=== PATIENT | female | born 1945 | race Caucasian/White ===

== ENCOUNTER 2022-09-15 06:01 | Outpatient (CLI) | payer MEDICAID, SELFPAY ==
--- NOTE | 2022-09-15 | US_ITS ---
WS: [id number] Complete ABDOMINAL ULTRASOUND HISTORY: ABD PAIN AND BLOATING COMPARISON: CT 09/13/2008 Liver: 12.3 cm in length. Liver is small. Coarse echotexture and heterogeneity throughout the liver. Numerous hypoechoic nodules scattered throughout the liver. The largest in the central RIGHT lobe rajeev sures 1.5 cm. No increased vascularity. No bile duct dilatation. Portal Vein: Normal hepatopetal flow with monophasic waveform. Gallbladder: Prior cholecystectomy. Pancreas: Poorly visualized. Portions of the body visualized are normal. CBD: 0.9 cm. Right kidney: 8.9 cm x 4.6 cm x 4.3 cm. No mass, cortical thickening or hydronephrosis. Left kidney: 9.4 cm x 4.7 cm x 4.3 cm. No mass, cortical thickening or hydronephrosis. Spleen: Normal size and echogenicity. Abdominal aorta and IVC are within normal limits. No ascites. US/US abdomen complete* [id number] IMPRESSION: 1. Abnormal liver. There are several hypoechoic masses scattered throughout th e liver with the largest measuring 1.5 cm. Most consistent with metastatic dise ase. Additional differential would include hepatic abscesses. Recommend follow- up CT abdomen and pelvis with IV and oral contrast. 2. Prior cholecystectomy. 3. No renal obstruction.
== END 2022-09-15 06:02 | disposition home or self-care (01) ==
LOC: RAD 06:02
PROVIDERS: Visit Provider Nurse Practitioner Family
DX: R10.9 Unspecified abdominal pain (principal); R14.0 Abdominal distension (gaseous); Z90.49 Acquired absence of other specified parts of digestive tract; R16.0 Hepatomegaly, not elsewhere classified
CPT/HCPCS: 76700

== ENCOUNTER 2022-10-08 11:53 | Emergency (ER) | payer MEDICAID, SELFPAY ==
[2022-10-08 12:06] VITALS: PULSE 70; O2SAT 97; BMI 26.7
--- NOTE | 2022-10-08 12:25 | CTR_ITS ---
PROCEDURE INFORMATION: Exam: CT Chest With Contrast; Diagnostic Exam date and time: 10/08/2022 2:15 PM Age: 77 years old Clinical indication: Abdominal pain; Other: Ruq; Prior surgery; Surgery date: 6+ months; Surgery type: Merissa; Additional info: Abnl US, ? liver mets on US, abd pain TECHNIQUE: Imaging protocol: Diagnostic computed tomography of the chest with contrast. Radiation optimization: All CT scans at this facility use at least one of these dose optimization techniques: automated exposure control; mA and/or kV adjustment per patient size (includes targeted exams where dose is matched to clinical indication); or iterative reconstruction. Contrast material: OMNI 350; Contrast volume: 100 ml; Contrast route: INTRAVENOUS (IV); Other contrast: Oral, Omni 350 w/water, 600ml; REPORTING DATA: Count of CT and Cardiac NM exams in prior 12 months: This patient has received 0 known CTs and 0 known cardiac nuclear medicine studies in the 12 months prior to the current study. COMPARISON: US abdomen complete* [id number] 09/15/2022 6:18 AM RADIATION DOSE METRICS: Total DLP (mGy-cm): 859.09 FINDINGS: Lungs: Mild hypoventilatory changes posteriorly at the lung bases and mild subsegmental atelectasis left lingula, otherwise lung wells are aerated and clear. No nodules or masses detected. Pleural spaces: Unremarkable. No pneumothorax. No pleural effusion. Heart: Heart is mildly enlarged. No significant coronary artery calcifications or pericardial effusion. Lymph nodes: Unremarkable. No enlarged lymph nodes. Vasculature: Unremarkable. No aortic aneurysm. Stomach and bowel: Small amount of contrast in the mid esophagus suggestive of reflux. Bones/joints: Unremarkable. No acute fracture. Soft tissues: Unremarkable. PROCEDURE INFORMATION: Exam: CT Abdomen And Pelvis With Contrast Exam date and time: 10/08/2022 2:15 PM Age: 77 years old Clinical indication: Abdominal pain; Other: Ruq; Prior surgery; Surgery date: 6+ months; Surgery type: Merissa; Additional info: Abnl US, ? liver mets on US, abd pain TECHNIQUE: Imaging protocol: Computed tomography of the abdomen and pelvis with contrast. Radiation optimization: All CT scans at this facility use at least one of these dose optimization techniques: automated exposure control; mA and/or kV adjustment per patient size (includes targeted exams where dose is matched to clinical indication); or iterative reconstruction. Contrast material: OMNI 350; Contrast volume: 100 ml; Contrast route: INTRAVENOUS (IV); Other contrast: Oral, Omni 350 w/water, 600ml; REPORTING DATA: Count of CT and Cardiac NM exams in prior 12 months: This patient has received 0 known CTs and 0 known cardiac nuclear medicine studies in the 12 months prior to the current study. COMPARISON: US abdomen complete* [id number] 09/15/2022 6:18 AM RADIATION DOSE METRICS: Total DLP (mGy-cm): 859.09 FINDINGS: Lungs: Lung bases are clear. Liver: There are numerable hypodense masses throughout the liver measuring up to 3 cm consistent with widespread liver metastasis. Gallbladder and bile ducts: Gallbladder has been removed. There is mild associated dilatation of the common bile duct. Pancreas: Unremarkable. Main pancreatic duct is not significantly dilated. Spleen: Normal. No splenomegaly. Adrenal glands: Normal. No mass. Kidneys and ureters: Tiny cortical cyst left kidney likely benign otherwise kidneys are unremarkable. Stomach and bowel: Few scattered diverticula sigmoid colon otherwise bowel loops are unremarkable. Appendix: No evidence of appendicitis. Intraperitoneal space: Unremarkable. No free air. No significant fluid collection. Vasculature: Unremarkable. No abdominal aortic aneurysm. Lymph nodes: Unremarkable. No enlarged lymph nodes. Urinary bladder: Unremarkable as visualized. Reproductive: 3 cm calcified uterine fibroid otherwise uterus is unremarkable. 2.5 cm right ovarian cyst, nonspecific. Bones/joints: Mild scoliosis lumbar spine. No suspicious bone lesions detected. Soft tissues: Small fat containing umbilical hernia. CT/CT chest abdpel w/*[id number] IMPRESSION: 1. No evidence of intrathoracic malignancy or metastatic disease within the chest. 2. Mild subsegmental atelectasis left lingula. IMPRESSION: 1. Numerous liver metastasis. 2. Prior cholecystectomy with mild associated dilatation of the common bile duct. 3. Large calcified uterine fibroid 4. 2.5 cm right ovarian cyst, nonspecific. In view of patient's age and liver findings would recommend follow-up nonemergent pelvic ultrasound for further characterization.
--- NOTE | 2022-10-08 12:29 | ED_ITS ---
HPI - Abdominal Pain General: Chief Complaint: Abdominal Pain Stated Complaint: abd pain Time Seen by Provider: 10/08/22 12:05 Source: patient, family and old records reviewed Mode of arrival: ambulatory Limitations: language barrier (daughter prefers to be adult education manager, patient from [facility]) History of Present Illness: 77 yo f with 1 months constant, worsening abd pain with recent abnormal RUQ US that was ordered by PCP. MD elicited complaint: abdominal pain Pertinent past history: diverticulitis, gastritis, gastrointestinal bleeding, kidney stones, myocardial infarction and other (cholecystectomy) Onset (ago): month(s) (1) Pain Consistency: constant Location: Diffuse and RUQ (worst pain RUQ) Severity: moderate Quality: dull Exacerbating factors: eating and movement Relieving factors: nothing Context: other (US ordered by PCP--found possible cancer vs abscesses in liver, hasn't had f/u CT) Associated Symptoms: Reports anorexia, GI cramping, heartburn, nausea and poor appetite; Denies change in bowel habits, change in stool character, coffee ground emesis, constipation, diarrhea, dysuria, fever(s), hematuria, hematemesis, fecal incontinence, loose stools and syncope Review of Systems General: Reports: 10 or more systems reviewed and unremarkable except in HPI and below Const: Reports: fatigue and other ( hot and cold back and forth ); Denies: fever(s) or change in weight Eyes: Denies: change in vision ENMT: Denies: throat pain Card: Denies: syncope Resp: Denies: dyspnea or productive cough GI: Reports: abdominal pain, nausea, heartburn, early satiety and GI cramping; Denies: hematemesis, coffee ground emesis, diarrhea, constipation, fecal incontinence, change in bowel habits or change in stool character : Denies: dysuria or hematuria Musc: Denies: neck pain, back pain, extremity pain or extremity swelling Skin/Breast: Denies: rash or erythema Neuro: Denies: headache(s), numbness in extremities, weakness in extremities, lack of coordination or difficulty walking Physical Exam Const: COMMON NORMALS: no limitations, alert and well nourished EXAM LIMITATIONS: no altered mental status HENMT: COMMON NORMALS: normocephalic, atraumatic and external ears normal HEAD & SCALP: normocephalic and atraumatic EXTERNAL EAR: Yes external ears normal MOUTH: no muffled voice Eye: COMMON NORMALS: EOMs intact bilaterally, conjunctivae normal and no scleral icterus CONJUNCTIVA: Yes conjunctivae normal Neck/C-Spine: COMMON NORMALS: no JVD GENERAL: Yes normal visual inspection and Yes trachea midline Chest: BREAST/AXILLA PALPATION: Yes other (deferred) Resp: COMMON NORMALS: normal respiratory effort, No use of accessory muscles and clear to auscultation bilaterally AUSCULTATION: clear to auscultation bilaterally Cardio: COMMON NORMALS: no JVD, regular rate and regular rhythm RATE: regular rate RHYTHM: regular rhythm GI: COMMON NORMALS: Soft to palpation INSPECTION: No Anasarca and No scaphoid PALPATION: Yes Soft to palpation, No Firmness to palpation present (GI) and Yes Tenderness to palpation present (GI) Details: LLQ, RLQ and RUQ Extremity: COMMON NORMALS: normal to inspection Neuro: COMMON NORMALS: moves all extremities, no focal motor deficits and no sensory deficits noted SENSORIUM/ORIENTATION: Yes alert SPEECH: speech normal Psych: COMMON NORMALS: mental status grossly normal, Normal thought process present, cooperative, normal affect and speech normal SPEECH: Yes normal speech THOUGHT PROCESS: Normal thought process present Skin: COMMON NORMALS: turgor normal and no jaundice GENERAL SKIN EXAM: turgor normal Course Vital Signs: Vital signs: Vital Signs Pulse Rate 67 10/08/22 15:00 Blood Pressure 146/83 10/08/22 15:00 Pulse Oximetry 90 10/08/22 15:00 Oxygen Delivery Me thod 10/08/22 15:00 MDM - Abdominal Pain Medical Decision Making 77-year-old female with 1 month of indolent abdominal pain. She had an ultrasound that was ordered by her primary care physician. I have reviewed this. There is concern that there may be hepatic metastases. Alternatively, there could be hepatic abscesses although this was thought to be less likely. I am concerned for a neoplastic process. A chest abdomen and pelvis with contrast has been ordered. We will also use oral contrast. The patient will be given morphine and Zofran for comfort and IV fluids. CT Chest/Abd/Pelv w/ IV and Oral contrast: IMPRESSION: 1. ? No evidence of intrathoracic malignancy or metastatic disease within the chest. 2. ? Mild subsegmental atelectasis left lingula. ? ? IMPRESSION: 1. ? Numerous liver metastasis. 2. ? Prior cholecystectomy with mild associated dilatation of the common bile duct. 3. ? Large calcified uterine fibroid 4. ? 2.5 cm right ovarian cyst, nonspecific. In view of patient's age and liver findings would recommend follow-up nonemergent pelvic ultrasound for further characterization. UPDATE: In light of the CT scan findings above, the patient is thought to have liver metastasis. There is a right ovarian cyst, which is concerning at this age. She will need further workup. I called Dr Fleming and am awaiting a call back. She will get a referral to Dr Fleming and her PCP---since she has liver lesions, ths would be the best place to get biopsy. She has NEVER had colonoscopy. At this time, there is no indication for admission. I will d/c with pain medication and nausea medication. Results discussed with patient/daughter. Lab Data 10/08/22 12:35 10/08/22 12:35 Labs/Radiology: Radiology Impressions Chest/Abdomen/Pelvis CT 10/08/22 12:25 IMPRESSION: 1. No evidence of intrathoracic malignancy or metastatic disease within the chest. 2. Mild subsegmental atelectasis left lingula. IMPRESSION: 1. Numerous liver metastasis. 2. Prior cholecystectomy with mild associated dilatation of the common bile duct. 3. Large calcified uterine fibroid 4. 2.5 cm right ovarian cyst, nonspecific. In view of patient's age and liver findings would recommend follow-up nonemergent pelvic ultrasound for further characterization. Laboratory Results WBC 7.5 10^3/uL (4.0-10.0) 10/08/22 12:35 RBC 4.50 10^6/uL (4.1-5.3) 10/08/22 12:35 Hgb 12.3 g/dL (11.5-15.3) 10/08/22 12:35 Hct 39.2 % (37.0-47.0) 10/08/22 12:35 MCV 87.1 fl (81-99) 10/08/22 12:35 MCH 27.3 pg (28.0-34.0) L 10/08/22 12:35 MCHC 31.4 g/dL (30.0-36.0) 10/08/22 12:35 RDW 13.5 % (12.1-15.1) 10/08/22 12:35 Plt Count 298 10^3/cmm (130-400) 10/08/22 12:35 MPV 9.6 fL (7.4-10.4) 10/08/22 12:35 Neut % (Auto) 68.5 % 10/08/22 12:35 Lymph % (Auto) 19.1 % 10/08/22 12:35 [place] % (Auto) 7.4 % 10/08/22 12:35 Eos % (Auto) 3.9 % 10/08/22 12:35 Baso % (Auto) 0.8 % 10/08/22 12:35 Neut # (Auto) 5.15 10^3/uL (1.8-7.7) 10/08/22 12:35 Lymph # (Auto) 1.4 10^3/uL (0.8-4.8) 10/08/22 12:35 [place] # (Auto) 0.6 10^3/uL (0.2-0.9) 10/08/22 12:35 Eos # (Auto) 0.3 10^3/uL (0.0-0.8) 10/08/22 12:35 Baso # (Auto) 0.1 10^3/uL (0.0-0.1) 10/08/22 12:35 Nucleated RBC % (auto) 0 % 10/08/22 12:35 Nucleated RBCs # 0.0 /100WBC 10/08/22 12:35 Sodium 138 mmol/L (136-145) 10/08/22 12:35 Potassium 3.7 mmol/L (3.5-5.1) 10/08/22 12:35 Chloride 102 mmol/L (98-107) 10/08/22 12:35 Carbon Dioxide 23 mmol/L (22-29) 10/08/22 12:35 Anion Gap 16.7 (5-19) 10/08/22 12:35 BUN 16 mg/dL (8-23) 10/08/22 12:35 Creatinine 0.7 mg/dL (0.5-0.9) 10/08/22 12:35 GFR Calculation Not Reportable 10/08/22 12:35 Glucose 102 mg/dL (65-115) 10/08/22 12:35 Calculated Osmolality 287 mOsm/kg (285-295) 10/08/22 12:35 Calcium 9.9 mg/dL (8.5-10.5) 10/08/22 12:35 Magnesium 2.2 mg/dL (1.7-2.3) 10/08/22 12:35 Total Bilirubin 0.8 mg/dL (0.15-1.2) 10/08/22 12:35 AST 128 U/L (0-32) H 10/08/22 12:35 ALT 79 U/L (0-33) H 10/08/22 12:35 Alkaline Phosphatase 342 U/L (35-105) H 10/08/22 12:35 Total Protein 7.7 g/dL (6.6-8.7) 10/08/22 12:35 Albumin 4.1 g/dL (3.5-5.2) 10/08/22 12:35 Globulin 3.6 g/dL (1.3-4.6) 10/08/22 12:35 Lipase 30 U/L (13-60) 10/08/22 12:35 Discharge Plan Discharge Patient Disposition: Home Clinical Impression: Metastatic cancer to liver, Ovarian cyst, right Condition: Stable Prescriptions: New hydrocodone-acetaminophen 5-325 mg tablet 1 tab PO Q6H PRN (Reason: pain) Qty: 20 0RF Senna with Docusate Sodium 8.6-50 mg tablet 1 tab-cap PO BID PRN (Reason: constipation) Qty: 30 0RF ondansetron 4 mg tablet,disintegrating 4 mg PO Q6H PRN (Reason: nausea and vomiting) Qty: 20 2RF Discharge Orders: Discharge ED (Routine); Ordered 10/08/22 Ordered By: Ramiro العلي Referrals: Lauro Fleming MD [Hospitalist] - 1-3 days (Discovered liver lesions, appears metastatic. Needs tissue diagnosis. Needs help setting up/managing.) Discharge Diet: Advance as tolerated Discharge Activity: Resume usual activity Patient Instructions: Cancer Pain, Needle Biopsy (DC), Opioid Safety, Pain Management Activity Restrictions/Additional Instructions: There is suspected metastatc cancer lesions in the liver. You will need biopsy to determine the type. Once the type is determined, you can discuss treatment options. If you have not heard from Dr Fleming's office by Sunday, please call them. ? CT SCAN IMPRESSION: Numerous liver metastasis. 2.5 cm right ovarian cyst, nonspecific. In view of patient's age and liver findings would recommend follow-up nonemergent pelvic ultrasound for further characterization. Coding Level of Care Code ED Mother Baby Rn for Bhavna Oneal
[2022-10-08] MEDS: sodium chloride 0.9% 1,000 ML 999 ML IV (12:47)
[2022-10-08] MEDS: morphine 4 mg/mL SDV 1 mL IVP (12:47)
[2022-10-08] MEDS: ondansetron 2 mg/ML SDV 2 mL 4 MG IM (12:47)
[2022-10-08 13:07] LABS: Basophils # 0.1 10^3/uL (0.0-0.1); Basophils % 0.8 %; Eosinophils # 0.3 10^3/uL (0.0-0.8); Eosinophils % 3.9 %; Hematocrit 39.2 % (37.0-47.0); Hemoglobin 12.3 g/dL (11.5-15.3); Lymphocytes # 1.4 10^3/uL (0.8-4.8); Lymphocytes % 19.1 %; Mean Corpuscular HGB Conc 31.4 g/dL (30.0-36.0); Mean Corpuscular Hemoglobin 27.3 pg (28.0-34.0); Mean Corpuscular Volume 87.1 fl (81-99); Mean Platelet Volume 9.6 fL (7.4-10.4); Monocytes # 0.6 10^3/uL (0.2-0.9); Monocytes % 7.4 %; Neutrophils # 5.15 10^3/uL (1.8-7.7); Neutrophils % 68.5 %; Nucleated Red Blood Cells % 0 %; Platelet Count 298 10^3/cmm (130-400); Red Cell Distribution Width 13.5 % (12.1-15.1); White Blood Count 7.5 10^3/uL (4.0-10.0)
[2022-10-08 13:41] LABS: Alanine Aminotransferase 79 U/L (0-33); Albumin Level 4.1 g/dL (3.5-5.2); Alkaline Phosphatase 342 U/L (35-105); Anion Gap 16.7 (5-19); Aspartate Amino Transferase 128 U/L (0-32); Blood Urea Nitrogen 16 mg/dL (8-23); Calcium 9.9 mg/dL (8.5-10.5); Carbon Dioxide 23 mmol/L (22-29); Chloride 102 mmol/L (98-107); Globulin 3.6 g/dL (1.3-4.6); Glucose 102 mg/dL (65-115); Lipase 30 U/L (13-60); Magnesium 2.2 mg/dL (1.7-2.3); Osmolality Calculated 287 mOsm/kg (285-295); Potassium 3.7 mmol/L (3.5-5.1); Sodium 138 mmol/L (136-145); Total Bilirubin 0.8 mg/dL (0.15-1.2); Total Protein 7.7 g/dL (6.6-8.7)
[2022-10-08] MEDS: iohexol 350 mg/mL 500 mL Btl (per mL) IV (14:23)
[2022-10-08 15:00] VITALS: BP 146/83; PULSE 67; O2SAT 90
--- NOTE | 2022-10-10 10:51 | DCPLANNER ---
manager report had message to refer patient to Dr. Fleming at the [facility]. manager report spoke with Mary, coordinator of online programs, at the [facility]. manager report was told that Mary has already spoken with patients primary care physician, who is taking care of referrals that need to be made for patient to get a biopsy. After biopsy, patients information will be reviewed, and clinic will call patient with appointment information.
== END 2022-10-08 16:07 | disposition home or self-care (01) ==
PROVIDERS: Emergency Provider Emergency Medicine
DX: N83.201 Unspecified ovarian cyst, right side (principal); C78.7 Secondary malignant neoplasm of liver and intrahepatic bile duct
CPT/HCPCS: 71260; 74177; 80053; 83690; 83735; 85025; 96361; 96372; 96374; 99285; J2270; J2405; J7030; Q9967

== ENCOUNTER 2022-10-12 16:03 | Oncology outpatient (recurring) (ONCR) | payer MEDICAID, SELFPAY | END 2022-11-10 23:59 | disposition home or self-care (01) | LOC: ONCMED 16:03 | PROVIDERS: PCP Nurse Practitioner Family; Visit Provider Internal Medicine Medical Oncology | DX: C78.7 Secondary malignant neoplasm of liver and intrahepatic bile duct (principal); C80.1 Malignant (primary) neoplasm, unspecified; Z87.891 Personal history of nicotine dependence | CPT/HCPCS: 99205 ==

== ENCOUNTER 2022-11-10 14:22 | Emergency (ER) | payer MEDICAID, SELFPAY ==
[2022-11-10 14:37] VITALS: BP 137/88; PULSE 89; RESP 17; TEMP 36.3; O2SAT 98; BMI 25.7
[2022-11-10 14:46] VITALS: BP 125/76; PULSE 84; RESP 16; O2SAT 97
[2022-11-10 15:00] VITALS: BP 125/76; PULSE 85; RESP 16; O2SAT 95
--- NOTE | 2022-11-10 15:55 | W.ED.WEAKNES ---
HPI - Weakness General: Chief complaint: Weakness Stated complaint: AMS/wont eat.drink Time Seen by Provider: 11/10/22 15:55 Source: patient Mode of arrival: ambulatory History of Present Illness: 77-year-old female presents emergency room with generalized weakness. She is obviously jaundiced and extremely weak. She was seen last month and noted to have metastasis to the liver from an unknown primary. There is no significant lung masses or pancreatic masses. CT otherwise had no other indication of a primary source she seen Dr. Fleming his oncology note was reviewed. Given her extensive metastatic disease he did not recommend any therapy was felt that she would be unlikely to benefit from it. He did offer biopsy of the liver to evaluate for primary source but they opted to skip the biopsy and did not plan on any treatment. MD Complaint: generalized weakness Onset (ago): month(s) Duration: constant Location: generalized Migration: none Severity: mild Relieving factors: none Exacerbating factors: none Associated symptoms: Reports chest pain; Denies chills, confusion, decreased appetite, easy bruising, fever(s), headache(s), myalgias, nausea, rash, short of breath or vomiting Review of Systems Const: Reports: fatigue and malaise; Denies: fever(s) or chills Card: Reports: chest pain Resp: Reports: dyspnea GI: Reports: abdominal pain; Denies: nausea or vomiting Skin/Breast: Reports: changes in skin color; Denies: rash or pruritus Neuro: Denies: headache(s) or confusion Devyn/Lymph: Denies: easy bruising PFSH ED PFSH: Medical History History of peptic ulcer disease Hypertension Surgical History History of cholecystectomy Family History Other CAD (coronary artery disease) Lung disease Stroke Denies family history of Diabetes Clotting disorder Dementia Hyperlipidemia Psychiatric illness Chronic kidney disease (CKD) Suicide Anesthesia complication Bleeding disorder Cancer Hypertension Social History Smoking and tobacco status: former smoker Physical Exam HENMT: COMMON NORMALS: normocephalic, atraumatic and hearing grossly normal bilaterally HEAD & SCALP: normocephalic and atraumatic Resp: COMMON NORMALS: normal respiratory effort, No retractions, No use of accessory muscles and clear to auscultation bilaterally AUSCULTATION: clear to auscultation bilaterally Cardio: COMMON NORMALS: regular rate, regular rhythm and No murmurs present (Cardio) RATE: regular rate RHYTHM: regular rhythm GI: COMMON NORMALS: Soft to palpation and No hepatosplenomegaly present AUSCULTATION: Yes normoactive bowel sounds PALPATION: Yes Soft to palpation, No Tenderness to palpation present (GI), No Guarding due to palpation present (GI) and Yes No hepatosplenomegaly present Extremity: COMMON NORMALS: normal to inspection, capillary refill normal, no clubbing, cyanosis or edema, no calf tenderness and no pedal edema Skin: COMMON NORMALS: no rashes or lesions noted GENERAL SKIN EXAM: no rashes or lesions noted OTHER: jaundice Course Vital Signs: Vital signs: Vital Signs Temperature 97.3 F L 11/10/22 14:37 Pulse Rate 87 11/10/22 16:23 Respiratory Rate 16 11/10/22 16:23 Blood Pressure 125/76 11/10/22 16:23 Pulse Oximetry 97 11/10/22 16:23 Oxygen Delivery Me thod 11/10/22 16:23 MDM - Weakness Medical Decision Making Labs and imaging reviewed reviewed Dr. Fleming's recent note as well as previous CT. Discussed with patient's daughter there is really not anything we can do if they still do not wish to pursue biopsy to determine primary source of the metastatic cancer with liver. Patient's daughter confirmed they do not wish to do the biopsy she is asking for some kind of immune boosting drugs that would improve her symptoms and cure her cancer. Is advised that such drug does not exist there is not really anything we could do that would improve her condition at this point. As Dr. Fleming I discussed with her she is not in physical condition to undergo any chemo. The involvement of the liver so extensive treatments would be futile. Encourage patient to consider hospice ultimately I did agree to hospice will make arrangements for hospice to meet at home to help with comfort cares. Patient's daughter also asked about IV fluids discussed with her that generally we do not encourage hydration when we are at the level of comfort cares. Medical Records I reviewed the patient's medical records. Lab Data I reviewed the patient's lab results. 11/10/22 15:56 11/10/22 15:56 Laboratory Results WBC 17.3 10^3/uL (4.0-10.0) H 11/10/22 15:56 RBC 5.14 10^6/uL (4.1-5.3) 11/10/22 15:56 Hgb 14.0 g/dL (11.5-15.3) 11/10/22 15:56 Hct 43.3 % (37.0-47.0) 11/10/22 15:56 MCV 84.2 fl (81-99) 11/10/22 15:56 MCH 27.2 pg (28.0-34.0) L 11/10/22 15:56 MCHC 32.3 g/dL (30.0-36.0) 11/10/22 15:56 RDW 20.0 % (12.1-15.1) H 11/10/22 15:56 Plt Count 343 10^3/cmm (130-400) 11/10/22 15:56 MPV 9.9 fL (7.4-10.4) 11/10/22 15:56 Neut % (Auto) 79.1 % 11/10/22 15:56 Lymph % (Auto) 12.0 % 11/10/22 15:56 [place] % (Auto) 6.2 % 11/10/22 15:56 Eos % (Auto) 1.4 % 11/10/22 15:56 Baso % (Auto) 0.3 % 11/10/22 15:56 Neut # (Auto) 13.69 10^3/uL (1.8-7.7) H 11/10/22 15:56 Lymph # (Auto) 2.1 10^3/uL (0.8-4.8) 11/10/22 15:56 [place] # (Auto) 1.1 10^3/uL (0.2-0.9) H 11/10/22 15:56 Eos # (Auto) 0.3 10^3/uL (0.0-0.8) 11/10/22 15:56 Baso # (Auto) 0.1 10^3/uL (0.0-0.1) 11/10/22 15:56 Nucleated RBC % (auto) 0 % 11/10/22 15:56 Nucleated RBCs # 0.0 /100WBC 11/10/22 15:56 PT 13.80 SECONDS (12.1-14.9) 11/10/22 15:56 INR 1.03 (0.8-1.2) 11/10/22 15:56 APTT 23.8 SECONDS (23.9-36.7) L 11/10/22 15:56 Sodium 130 mmol/L (136-145) L 11/10/22 15:56 Potassium 4.4 mmol/L (3.5-5.1) 11/10/22 15:56 Chloride 95 mmol/L (98-107) L 11/10/22 15:56 Carbon Dioxide 21 mmol/L (22-29) L 11/10/22 15:56 Anion Gap 18.4 (5-19) 11/10/22 15:56 BUN 27 mg/dL (8-23) H 11/10/22 15:56 Creatinine 0.7 mg/dL (0.5-0.9) 11/10/22 15:56 GFR Calculation Not Reportable 11/10/22 15:56 Glucose 126 mg/dL (65-115) H 11/10/22 15:56 Calculated Osmolality 277 mOsm/kg (285-295) L 11/10/22 15:56 Calcium 9.6 mg/dL (8.5-10.5) 11/10/22 15:56 Total Bilirubin 12.8 mg/dL (0.15-1.2) H* 11/10/22 15:56 AST 277 U/L (0-32) H 11/10/22 15:56 ALT 109 U/L (0-33) H 11/10/22 15:56 Alkaline Phosphatase 1138 U/L (35-105) H* 11/10/22 15:56 Ammonia 60 umol/L (11-51) H 11/10/22 15:56 Total Protein 7.3 g/dL (6.6-8.7) 11/10/22 15:56 Albumin 2.8 g/dL (3.5-5.2) L 11/10/22 15:56 Globulin 4.5 g/dL (1.3-4.6) 11/10/22 15:56 Lipase 31 U/L (13-60) 11/10/22 15:56 TSH 5.39 uIU/mL (0.27-4.20) H 11/10/22 15:56 Discharge Plan Discharge Patient Disposition: Home Clinical Impression: Carcinoma metastatic to liver with unknown primary site Condition: Stable Prescriptions: No Action pantoprazole [Protonix] 20 mg tablet,delayed release (DR/EC) See Rx Instructions PO DAILY Rx Instructions: strength unknown orally daily; atenolol 25 mg tablet See Rx Instructions PO DAILY Rx Instructions: strength unknown orally daily; ibuprofen 200 mg tablet 200 mg PO Q6H PRN dronabinol [Marinol] 2.5 mg capsule 2.5 mg PO BID Qty: 30 0RF Rx Instructions: administer before lunch and evening meal/dinner ondansetron 4 mg tablet,disintegrating 4 mg PO Q6H PRN (Reason: nausea and vomiting) Qty: 60 4RF hydrocodone-acetaminophen 5-325 mg tablet 1 tab PO Q6H PRN (Reason: pain) Qty: 20 0RF Senna with Docusate Sodium 8.6-50 mg tablet 1 tab-cap PO BID PRN (Reason: constipation) Qty: 30 0RF Discharge Orders: Discharge ED (Routine); Ordered 11/10/22 Ordered By: Alonso Paula Referrals: Daisy Wheatley FNP [Primary Care Provider] - Patient Instructions: Opioid Safety, Pain Management Activity Restrictions/Additional Instructions: You were seen today for generalized weakness. Your labs were significantly abnormal as a result of the cancer in the liver. Because the cancer is advanced and the primary's source of the cancer is unknown as you discussed Dr. Fleming there were no viable treatment options. We recommend that you establish with hospice for comfort care. Hospice will consult with you in your home. Coding Level of Care Code ED Sterile Process Coordinator for Bhavna Oneal
[2022-11-10 16:10] LABS: Basophils # 0.1 10^3/uL (0.0-0.1); Basophils % 0.3 %; Eosinophils # 0.3 10^3/uL (0.0-0.8); Eosinophils % 1.4 %; Hematocrit 43.3 % (37.0-47.0); Lymphocytes # 2.1 10^3/uL (0.8-4.8); Mean Corpuscular HGB Conc 32.3 g/dL (30.0-36.0); Mean Corpuscular Hemoglobin 27.2 pg (28.0-34.0); Mean Corpuscular Volume 84.2 fl (81-99); Mean Platelet Volume 9.9 fL (7.4-10.4); Monocytes # 1.1 10^3/uL (0.2-0.9); Monocytes % 6.2 %; Neutrophils # 13.69 10^3/uL (1.8-7.7); Neutrophils % 79.1 %; Nucleated Red Blood Cells % 0 %; Platelet Count 343 10^3/cmm (130-400); Red Blood Count 5.14 10^6/uL (4.1-5.3); White Blood Count 17.3 10^3/uL (4.0-10.0)
[2022-11-10 16:23] VITALS: BP 125/76; PULSE 87; RESP 16; O2SAT 97
[2022-11-10 16:34] LABS: Ammonia 60 umol/L (11-51)
[2022-11-10 16:43] LABS: Alanine Aminotransferase 109 U/L (0-33); Albumin Level 2.8 g/dL (3.5-5.2); Anion Gap 18.4 (5-19); Aspartate Amino Transferase 277 U/L (0-32); Blood Urea Nitrogen 27 mg/dL (8-23); Calcium 9.6 mg/dL (8.5-10.5); Carbon Dioxide 21 mmol/L (22-29); Chloride 95 mmol/L (98-107); Globulin 4.5 g/dL (1.3-4.6); Glucose 126 mg/dL (65-115); Osmolality Calculated 277 mOsm/kg (285-295); Potassium 4.4 mmol/L (3.5-5.1); Sodium 130 mmol/L (136-145); Thyroid Stimulating Hormone 5.39 uIU/mL (0.27-4.20); Total Protein 7.3 g/dL (6.6-8.7)
[2022-11-10 16:58] LABS: Alkaline Phosphatase 1138 U/L (35-105); Total Bilirubin 12.8 mg/dL (0.15-1.2)
[2022-11-10 17:06] LABS: INR 1.03 (0.8-1.2); Partial Thromboplastin Time 23.8 SECONDS (23.9-36.7)
[2022-11-10 17:30] LABS: Lipase 31 U/L (13-60)
--- NOTE | 2022-11-17 07:41 | PC.NURSE ---
11/16/22, GABY spoke to patient Ida, daughter, She did not have a preference on [facility]. GABY sent referal to [facility] hospice. Spoke with Cuco who states they received fax and should be able to accept patient, she would discuss with Dr. Chapman. 11/17/22, GABY spoke with Cuco at [facility] hospice. She states they accepted patient. They were able to get her set up yesterday. No other needs from .
== END 2022-11-10 17:33 | disposition home or self-care (01) ==
PROVIDERS: Emergency Medicine; Emergency Provider Family Medicine; PCP Nurse Practitioner Family
DX: C78.7 Secondary malignant neoplasm of liver and intrahepatic bile duct (principal); C80.1 Malignant (primary) neoplasm, unspecified; I10 Essential (primary) hypertension; Z87.891 Personal history of nicotine dependence
CPT/HCPCS: 80053; 82140; 83690; 84443; 85025; 85610; 85730; 87040; 99283